=== PATIENT | female | born 1975 | race Caucasian/White ===

== ENCOUNTER → 2016-07-06 | Outpatient (CLI) | payer OTHER ==
--- NOTE | 2016-07-06 15:17 | RAD ---
Transabdominal and endovaginal pelvic ultrasound History: Irregular and heavy menses. Comparison: None. Technique: Transabdominal imaging was performed to evaluate optimally the uterine fundus. Endovaginal imaging was performed to evaluate optimally the endometrial stripe and lower uterine segment. Findings: Transabdominal imaging: The uterus measures 7.8 cm in length. Uterus has an unremarkable appearance. The endometrial stripe measures 6 mm, within normal limits. Right ovary measures 3.7 x 2.5 x 2.4 cm and demonstrates a few physiologic follicles. Left ovary measures 3.6 x 4.5 x 3.3 cm and demonstrates a dominant follicle. No adnexal masses are seen. Endovaginal imaging: Nabothian cyst is seen. The uterus measures 7.7 cm in length. Uterus has an unremarkable appearance. The endometrial stripe measures 5 mm, within normal limits. Right ovary measures 3.8 x 2.1 x 2.1 cm and demonstrates a few physiologic follicles. Left ovary measures 3.8 x 2.6 x 2.6 cm and demonstrates a dominant complex lesion which is primarily hypoechoic and demonstrates multilevel internal echoes, although there are presence of a few more echogenic foci, possibly representing calcifications; the lesion 3.4 x 2.6 x 2.5 cm. No adnexal masses are seen. Both ovaries demonstrate normal vascular flow upon Doppler interrogation and are without evidence for torsion. Impression: 1. No evidence of endometrial thickening or uterine leiomyomata. 2. The left ovary demonstrates presence of hypoechoic lesion with low level internal echoes as well as a few foci of increased echogenicity. This lesion could represent endometrioma versus hemorrhagic cyst. 3. Left ovary is without evidence of torsion. 4. Unremarkable appearance of the right ovary. 5. Nabothian cyst.
== END | disposition home or self-care (01) ==
LOC: US 13:44
PROVIDERS: ATTEND Specialist
DX: N92.1 Excessive and frequent menstruation with irregular cycle (principal); N88.8 Other specified noninflammatory disorders of cervix uteri
CPT/HCPCS: 76830; 76856